=== PATIENT | female | born 1985 | race Caucasian/White ===

== ENCOUNTER 2018-03-26 14:57 | Outpatient (CLI) | payer OTHER | END 2018-03-26 14:58 | disposition home or self-care (01) | LOC: DTY/OP 14:57 | PROVIDERS: ATTEND Surgery | DX: E66.01 Morbid (severe) obesity due to excess calories (principal) | CPT/HCPCS: 97802 ==

== ENCOUNTER 2018-05-12 08:00 | Inpatient (IN) | payer BC ==
[2018-05-20] MEDS ORDERED: Fentanyl 100 MCG/2 ML VIAL ONE ×2 (06:31→09:17)
[2018-05-20] MEDS ORDERED: CEFAZOLIN/Water 2 GM/20 ML SYRINGE ONE (06:36)
[2018-05-20] MEDS ORDERED: Heparin 5,000 UNITS/ML VIAL ONE (06:36)
[2018-05-20] MEDS ORDERED: Bupivacaine/Epinephrine 0.25% 30 ML VIAL ONE (07:07)
[2018-05-20] MEDS ORDERED: Midazolam HCl 2 mg/2 ml Vial ONE (07:16)
[2018-05-20] MEDS ORDERED: Promethazine HCl 25 MG/ML VIAL IM PRN ×3 (08:53→12:04)
[2018-05-20] MEDS ORDERED: Promethazine HCl 25 MG/ML VIAL SLOW IVP PRN (08:53)
[2018-05-20] MEDS ORDERED: Ondansetron HCl/PF 4 MG/2 ML Vial IVP PRN ×3 (08:53→12:04)
[2018-05-20] MEDS ORDERED: diphenhydrAMINE 25 MG CAP PO PRN (08:54)
[2018-05-20] MEDS ORDERED: fentaNYL Citrate/PF 2,000 MCG in Sodium Chloride 0.9% 60 ML IV PRN (08:54)
[2018-05-20] MEDS ORDERED: Naloxone HCl 0.4 mg/ml Vial IV PRN (08:54)
[2018-05-20] MEDS ORDERED: Zolpidem Tartrate 5 MG TAB PO PRN (08:54)
[2018-05-20] MEDS ORDERED: diphenhydrAMINE 50 MG/ML VIAL IM PRN (08:54)
[2018-05-20] MEDS ORDERED: diphenhydrAMINE 50 MG/ML VIAL IVP PRN ×2 (08:54→12:04)
[2018-05-20] MEDS ORDERED: Communication Order-Pharmacy FS SCH (09:00)
[2018-05-20] MEDS ORDERED: Ondansetron HCl/PF 4 MG/2 ML Vial ONE ×2 (09:11→15:44)
[2018-05-20] MEDS ORDERED: Metoclopramide HCl 10 MG/2 ML VIAL ONE (09:29)
--- NOTE | 2018-05-20 11:11 | OP ---
DATE OF PROCEDURE: 05/20/2018 PREOPERATIVE DIAGNOSIS: Morbid obesity with a BMI of 43. POSTOPERATIVE DIAGNOSIS: Morbid obesity with a BMI of 43. PROCEDURE: 1. Laparoscopic sleeve gastrectomy, [place] staple line reinforcements and 38 Uzbek bougie. 2. Laparoscopic repair of paraesophageal hernia without fundoplication. SURGEON: Jaylon Oakes M.D. ANESTHESIA: General. ESTIMATED BLOOD LOSS: 50 mL COMPLICATIONS: None. FINDINGS: Hiatal hernia paraesophageal, normal postoperative EGD. SPECIMEN: Stomach. INDICATION: The patient is a 32-year-old female, who presents for weight loss surgery. She has atte nded our seminar, preoperative education and had a psychologic evaluation. Risks, benefits, alternat mu as well as alternative procedures for weight loss were discussed. She gave consent. TECHNIQUE: The patient was taken to the operating room and placed supine on the table. After genera l anesthetic was obtained, the arms and legs were double strapped to bariatric table. The abdomen wa s prepped and draped in a sterile fashion. OG tube had been used to decompress the stomach. Left fitzgerald bcostal 5-mm Optiview trocar was placed in the usual fashion. High-flow pneumoperitoneum was obtaine d. Two right and left abdominal 12-mm ports as well as a right subcostal 5 mm port were placed under direct visualization. A 5-mm incision made at the xiphoid and Rex was used to raise the liver off the GE junction. There is paraesophageal hernia found. Short gastric taken down from a distanc e 6 cm proximal to the pylorus all the way to the left cristina of the diaphragm. Left cristina angle of His and fundus systems completely dissected. The gastrohepatic ligament is opened. The right cristina is f ound. The mediastinum is entered just below and to the right of the esophagus. Circumferential diss ection of the esophagus is performed, allowing the GE junction to come back down into the abdominal c avity. 0 Ethibond suture and the tie knot system is used to put two sutures posteriorly to reapproxi mate the crura. This is after a 38 bougie was brought in and its tip left in the antrum of the stoma ch. Multiple loads and [place] stapler was used to form the sleeve. The first is fired up at a dist ance of 6 cm proximal to the pylorus angled up to the incisura. Care was taken to avoid being too cl ose to incisura. Multiple loads then fired up along the bougie, and stomach was completely transecte d at the angle of His. The stomach was removed from left abdominal incision. This fascial defect wa s closed using GraNee needle 0 Vicryl tie. All port site were infiltrated using local anesthetic. E GD scope was passed into the esophagus, stomach to the level of duodenum without obstruction or stric ture. It is not too tight at the GE junction or at the esophageal hiatus. There is no air leakage t hrough the staple line. EGD scope was used to decompress the stomach, it was pulled and removed. Na thansen retractor was removed under direct visualization without bleeding. All port sites were remov ed under direct visualization. Pneumoperitoneum was let down. The Vicryl was used to close the fasc ia defect from left abdominal incisions. All incisions were irrigated and closed using 4-0 Monocryl and Dermabond. The patient went to recovery in stable condition. All instrument counts, needle cou nts and lap counts were correct.
[2018-05-20 11:30] VITALS: BMI 41.5
[2018-05-20] MEDS ORDERED: Dextrose 5% in Water 1,000 ML IV PRN (12:04)
[2018-05-20] MEDS ORDERED: Dextrose 50% Abboject 50 ML SYRINGE SLOW IVP PRN (12:04)
[2018-05-20] MEDS ORDERED: Hydrocodone-Acetamin 15 ML UDCUP PO PRN (12:04)
[2018-05-20] MEDS ORDERED: hydrALAZINE 20 MG/ML VIAL SLOW IVP PRN (12:04)
[2018-05-20] MEDS: Acetaminophen 1,000 MG in Premix Bag 1 BAG IVPB SCH ×2 (14:13→17:20)
[2018-05-20] MEDS: D5 1/2 NS w/20 mEq KCL 1,000 ML IV SCH ×2 (14:14→14:47)
[2018-05-20] MEDS: CEFAZOLIN/Water 2 GM/20 ML SYRINGE SLOW IVP SCH ×2 (14:24→21:27)
[2018-05-20] MEDS ORDERED: Glycopyrrolate 0.2 MG/ML 5 ML SYRINGE ONE (15:44)
[2018-05-20] MEDS ORDERED: PROPOFOL 200 MG/20 ML VIAL ONE (15:44)
[2018-05-20] MEDS ORDERED: Vecuronium 10 MG VIAL ONE (15:44)
[2018-05-20] MEDS ORDERED: Dexamethasone 20 MG/5 ML VIAL ONE (15:44)
[2018-05-20] MEDS ORDERED: Ketorolac Tromethamine 30 MG/ML VIAL ONE (15:44)
[2018-05-20] MEDS ORDERED: Lidocaine 1% PF 5 ML VIAL ONE (15:44)
[2018-05-20] MEDS ORDERED: Enoxaparin Sodium 40 MG/0.4 ML SYRINGE SC SCH (21:00)
[2018-05-20] MEDS ORDERED: Pantoprazole 40 MG VIAL IVP SCH (21:00)
[2018-05-21] MEDS: D5 1/2 NS w/20 mEq KCL 1,000 ML IV SCH (00:12)
[2018-05-21] MEDS: Acetaminophen 1,000 MG in Premix Bag 1 BAG IVPB SCH ×2 (00:32→07:26)
[2018-05-21 05:49] LABS: #Lymphocytes 2.5 thou/uL (1.20-3.40); #Monocytes 0.9 thou/uL (0.11-0.59); #Neutrophils 9.4 thou/uL (1.40-6.50); %Basophils 0.2 % (0.0-1.0); %Eosinophils 0.3 % (0.0-10.0); %Lymphocytes 19.3 % (21.0-51.0); %Neutrophils 73.2 % (42.0-75.0); Hemoglobin 12.1 g/dL (12.0-16.0); Mean Corpuscular HGB CONC 33.1 g/dL (32.0-36.0); Mean Corpuscular Hemoglobin 26.4 pg (27.0-31.0); Mean Corpuscular Volume 79.8 fL (78.0-98.0); Mean Platelet Volume 8.4 fL (7.4-10.4); Platelet Count 359 thou/uL (130-400); RBC Distribution Width 12.8 % (11.5-14.5); Red Blood Cell (RBC) Count 4.59 mill/uL (4.20-5.40); White Blood Cell (WBC) Count 12.8 thou/uL (4.8-10.8)
[2018-05-21 05:54] LABS: Anion Gap 12 mmol/L (10-20); BUN (Urea Nitrogen) 5 mg/dL (7.0-18.7); Calc. Creatinine Clearance 239 mL/min (70-130); Calcium 8.8 mg/dL (7.8-10.44); Carbon Dioxide 23 mmol/L (22-29); Chloride 106 mmol/L (98-107); Estimated GFR-MDRD Greater than 90; Glucose 127 mg/dL (70-105); Potassium 4.1 mmol/L (3.5-5.1); Sodium 137 mmol/L (136-145)
[2018-05-21] MEDS ORDERED: Hydrocodone-Acetamin 15 ML UDCUP PO PRN (10:04)
[2018-05-21 11:50] VITALS: BP 147/93; TEMP 98.2
--- NOTE | 2018-05-21 14:27 | DIS ---
ADMIT DIAGNOSIS: Morbid obesity. DISCHARGE DIAGNOSIS: Morbid obesity. PROCEDURES: Laparoscopic sleeve gastrectomy and hiatal hernia repair by Dr. Oakes without complica tion. CONDITION AT DISCHARGE: Improved. STAFF: Dr. Jaylon Oakes. HOSPITAL COURSE: On postop day #1, the patient tolerating liquid diet. She is doing well. She is d ischarged home. She will follow up with me in 2 weeks in the office. Prescriptions already sent to her pharmacy.
== END 2018-05-21 12:06 | disposition home or self-care (01) | DRG 621 ==
LOC: SURG A 05-20 05:56 → SURG B 05-20 11:41
PROVIDERS: ADMIT Surgery; ATTEND Surgery
PROC: 0DB64Z3 Excision of Stomach, Percutaneous Endoscopic Approach, Vertical (ICD-10-PCS; principal; 2018-05-20)
PROC: 0BQT4ZZ Repair Diaphragm, Percutaneous Endoscopic Approach (ICD-10-PCS; 2018-05-20)
DX: E66.01 Morbid (severe) obesity due to excess calories (principal); Z68.41 Body mass index [BMI] 40.0-44.9, adult; K44.9 Diaphragmatic hernia without obstruction or gangrene
CPT/HCPCS: 36415; 80048; 85025; 88307; 88312; 94760; C9113; J0131; J1100; J1644; J1650; J1885; J2001; J2250; J2405; J2704; J2765; J3010; J7050

== ENCOUNTER 2018-05-14 13:49 | Outpatient (CLI) | payer BC ==
--- NOTE | 2018-05-14 14:18 | RAD ---
TWO VIEWS CHEST: Comparison: None. History: Pre-operative radiograph. FINDINGS: Two views of the chest show normal sized cardiomediastinal silhouette. There is no evidence of consol idation, mass, or pleural effusion. The bones are unremarkable. IMPRESSION: No evidence of acute cardiopulmonary disease. POS: [facility]
[2018-05-14 14:22] LABS: #Basophils 0.1 thou/uL (0.0-0.2); #Eosinphils 0.2 thou/uL (0.0-0.7); #Lymphocytes 3.1 thou/uL (1.20-3.40); #Monocytes 0.7 thou/uL (0.11-0.59); %Basophils 0.7 % (0.0-1.0); %Eosinophils 1.8 % (0.0-10.0); %Lymphocytes 31.1 % (21.0-51.0); %Neutrophils 59.5 % (42.0-75.0); Hemoglobin 12.9 g/dL (12.0-16.0); Mean Corpuscular HGB CONC 34.4 g/dL (32.0-36.0); Mean Corpuscular Volume 78.6 fL (78.0-98.0); Mean Platelet Volume 8.2 fL (7.4-10.4); Platelet Count 364 thou/uL (130-400); RBC Distribution Width 12.8 % (11.5-14.5); Red Blood Cell (RBC) Count 4.76 mill/uL (4.20-5.40)
[2018-05-14 14:29] LABS: BHCG - Serum Negative (NEGATIVE); Hemoglobin A1c 5.5 % (4.0-6.0); Pregs Control Background? CLEAR/WHITE (CLR/WHITE); Pregs Control Bar Appear? YES (CONTROL BAR)
[2018-05-14 14:42] LABS: ALT (SGPT) 21 U/L (8-55); AST (SGOT) 17 U/L (5-34); Albumin 4.3 g/dL (3.5-5.0); Alkaline Phosphatase 71 U/L (40-150); Anion Gap 14 mmol/L (10-20); BUN (Urea Nitrogen) 14 mg/dL (7.0-18.7); Bilirubin, Direct 0.1 mg/dL (0.1-0.3); Bilirubin, Total 0.4 mg/dL (0.2-1.2); Calc. Creatinine Clearance 0 mL/min (70-130); Calcium 9.6 mg/dL (7.8-10.44); Carbon Dioxide 23 mmol/L (22-29); Chloride 103 mmol/L (98-107); Estimated GFR-MDRD Greater than 90; Globulin 3.9 g/dL (2.4-3.5); Glucose 116 mg/dL (70-105); Potassium 4.3 mmol/L (3.5-5.1); Protein, Total 8.2 g/dL (6.0-8.3); Sodium 136 mmol/L (136-145)
== END 2018-05-14 13:50 | disposition home or self-care (01) ==
LOC: LABBT 13:49
PROVIDERS: ATTEND Surgery
DX: Z01.818 Encounter for other preprocedural examination (principal); E66.01 Morbid (severe) obesity due to excess calories
CPT/HCPCS: 71046; 80053; 80076; 83036; 84703; 85025; 93005; 93010

== ENCOUNTER 2020-06-14 08:09 | Outpatient (CLI) | payer BC ==
--- NOTE | 2020-06-14 09:53 | MMO ---
Bilateral MAMMO Bilat Diag [facility]. CLINICAL HISTORY: Patient is 35 years old and is seen for diagnostic exam,lump or thickening and bloody discharge in the right breast. The patient has no family history of breast cancer. The patient has no personal history of cancer. VIEWS: The views performed were: bilateral craniocaudal with tomosynthesis; bilateral mediolateral oblique with tomosynthesis; and bilateral mediolateral with tomosynthesis. FILMS COMPARED: The present examination has been compared to a prior imaging study performed at [facility] on 06/14/2020. This study has been interpreted with the assistance of computer-aided detection. MAMMOGRAM FINDINGS: There are scattered fibroglandular densities. No mammographic or sonograhic abnormality is seen at the site of palpable concern and subaerolar region in the right breast. There are no suspicious masses, suspicious calcifications, or new areas of architectural distortion. IMPRESSION: THERE IS NO MAMMOGRAPHIC EVIDENCE OF MALIGNANCY. AGE APPROPRIATE SCREENING BASED ON RISK FACTORS IS RECOMMENDED. THE RESULTS OF THIS EXAM WERE SENT TO THE PATIENT. ACR BI-RADS Category 2 - Benign finding Breast MRI should be performed to evaluate bloody nipple discharge. MAMMOGRAPHY NOTE: 1. A negative mammogram report should not delay a biopsy if a dominant of clinically suspicious mass is present. 2. Approximately 10% to 15% of breast cancers are not detected by mammography. 3. Adenosis and dense breasts may obscure an underlying neoplasm. Reported by: EUN GONSALES MD Electonically Signed: [id number]
--- NOTE | 2020-06-14 09:55 | ULT ---
RIGHT BREAST ULTRASOUND: Date: 06/14/2020 HISTORY: 35-year-old female with palpable abnormalities in the right breast and blood right nipple discharge. FINDINGS: Correlation made with mammogram from same date. Sonographic evaluation of the region of palpable concern at the 3, 5, and 6 o'clock positions of the right breast, as well as the subareolar region, demonstrate no abnormality. IMPRESSION: BI-RADS Category 2 - Benign findings. Age-appropriate mammographic screening based on risk factors is recommended. Breast MRI should be performed to evaluate the bloody nipple discharge. CODE T. POS: OFF
== END 2020-06-14 08:10 | disposition home or self-care (01) ==
LOC: BICMAMMO 08:09
PROVIDERS: ATTEND Family Medicine
DX: N64.52 Nipple discharge (principal); N60.01 Solitary cyst of right breast
CPT/HCPCS: 77066; G0279

== ENCOUNTER 2020-07-24 07:57 | Outpatient (CLI) | payer BC ==
--- NOTE | 2020-07-24 08:41 | CT ---
CT Stone Protocol: 07/24/2020 12:00 AM HISTORY: Left kidney pain for 6 months COMPARISON: None. TECHNIQUE: Multiple contiguous axial images were obtained and a CT of the abdomen and pelvis without IV contrast . Coronal and sagittal reformats were performed. FINDINGS: This examination is limited for the evaluation of solid organs and vascular structures due to the lac k of intravenous contrast. Lower Chest: within normal limits. Abdomen: Liver: within normal limits. Bile Ducts: Normal caliber. Gallbladder: Removed Pancreas: within normal limits. Spleen: within normal limits. Adrenals: within normal limits. Kidneys: There is a 1.3 cm calcification in the left renal pelvis with mild left hydronephrosis. No r ight renal calcifications. Pelvis: Reproductive Organs: No pelvic masses. Ureters: within normal limits. Bladder: within normal limits. Bowel: Normal caliber. Postsurgical changes are seen in the stomach. Normal appendix. Mesenteric Lymph Nodes: No enlarged mesenteric lymph nodes. Peritoneum: No ascites or free air, no fluid collection. Vessels: Normal caliber aorta Retroperitoneum: within normal limits. Abdominal Wall: within normal limits. Bones: Unremarkable. IMPRESSION: Left-sided kidney stone with mild left hydronephrosis
== END 2020-07-24 07:58 | disposition home or self-care (01) ==
LOC: SCSCT 07:57
PROVIDERS: ATTEND Urology
DX: N20.0 Calculus of kidney (principal); N13.30 Unspecified hydronephrosis
CPT/HCPCS: 74176

== ENCOUNTER 2020-08-13 06:17 | Outpatient (CLI) | payer BC, OTHER ==
[2020-08-13 18:16] LABS: #Basophils 0.1 thou/uL (0.0-0.2); #Eosinphils 0.1 thou/uL (0.0-0.7); #Lymphocytes 2.9 thou/uL (1.20-3.40); #Monocytes 0.8 thou/uL (0.11-0.59); #Neutrophils 6.5 thou/uL (1.40-6.50); %Eosinophils 1.1 % (0.0-10.0); %Lymphocytes 27.9 % (21.0-51.0); %Monocytes 7.3 % (0.0-10.0); %Neutrophils 62.7 % (42.0-75.0); Hemoglobin 12.4 g/dL (12.0-16.0); Mean Corpuscular HGB CONC 33.7 g/dL (32.0-36.0); Mean Corpuscular Hemoglobin 27.1 pg (27.0-31.0); Mean Corpuscular Volume 80.6 fL (78.0-98.0); Mean Platelet Volume 8.9 fL (7.4-10.4); Platelet Count 343 thou/uL (130-400); RBC Distribution Width 11.9 % (11.5-14.5); Red Blood Cell (RBC) Count 4.58 mill/uL (4.20-5.40); White Blood Cell (WBC) Count 10.4 thou/uL (4.8-10.8)
[2020-08-13 18:33] LABS: PTT 33.7 sec (22.9-36.1)
[2020-08-13 18:39] LABS: BHCG - Serum Negative (NEGATIVE); Bacteria/HPF None Seen HPF (None Seen); Bilirubin Negative (Negative); Blood, Urine 1+ (Negative); Clarity Turbid (Clear); Glucose, Urine (Dipstick) Normal (Negative); Ketone, Urine Negative (Negative); Leukocyte Negative Leu/uL (Negative); Nitrite Negative (Negative); Pregs Control Background? CLEAR/WHITE (CLR/WHITE); Pregs Control Bar Appear? YES (CONTROL BAR); Protein, Urine (Dipstick) 10 mg/dL (Neg-Trace); Specific Gravity, Urine 1.016 (1.002-1.036); Squamous Epithelial 0-3 HPF (0-3); Urobilinogen Normal mg/dL (Less than 2); WBC/HPF 0-3 HPF (0-3)
[2020-08-13 18:41] LABS: Mucous/LPF 1+ LPF (<2+)
[2020-08-13 18:57] LABS: Anion Gap 14 mmol/L (10-20); BUN (Urea Nitrogen) 11 mg/dL (7.0-18.7); Calc. Creatinine Clearance 0 mL/min (70-130); Calcium 9.5 mg/dL (7.8-10.44); Carbon Dioxide 25 mmol/L (22-29); Chloride 103 mmol/L (98-107); Estimated GFR-MDRD Greater than 90; Glucose 101 mg/dL (70-105); Potassium 4.4 mmol/L (3.5-5.1); Sodium 138 mmol/L (136-145)
[2020-08-14 13:22] LABS: SARS-CoV-2 MS2 Positive; SARS-CoV-2 N Gene Negative; SARS-CoV-2 S Gene Negative; SARS-CoV-2 by NAA Not Detected (NotDetected); SARS-CoV-2 orf1ab Negative
== END 2020-08-13 06:18 | disposition home or self-care (01) ==
LOC: LABBT 06:17
PROVIDERS: ATTEND Specialist
DX: Z01.812 Encounter for preprocedural laboratory examination (principal); Z20.828 Contact with and (suspected) exposure to other viral communicable diseases; D24.9 Benign neoplasm of unspecified breast
CPT/HCPCS: 80048; 81001; 84703; 85025; 85610; 85730; 87086; 87635; U0003

== ENCOUNTER 2020-08-16 07:32 | Day surgery (SDC) | payer BC ==
[2020-08-14 11:04] VITALS: BMI 34.6
[2020-08-16] MEDS ORDERED: Acetaminophen 500 MG TAB ONE (08:01)
[2020-08-16] MEDS ORDERED: Levofloxacin 500 mg/D5W 100 ml Premix Bag ONE (08:01)
[2020-08-16] MEDS ORDERED: Ketorolac Tromethamine 30 MG/ML VIAL ONE (08:01)
[2020-08-16] MEDS ORDERED: Midazolam HCl 2 mg/2 ml Vial ONE ×2 (09:30→13:06)
[2020-08-16] MEDS ORDERED: Ondansetron PF 4 MG/2 ML Vial ONE (09:48)
[2020-08-16] MEDS ORDERED: Glycopyrrolate 0.2 MG/ML 5 ML SYRINGE ONE (09:48)
[2020-08-16] MEDS ORDERED: PROPOFOL 200 MG/20 ML VIAL ONE ×2 (09:48)
[2020-08-16] MEDS ORDERED: EPHEDRINE 25 MG/5 ML SYRINGE ONE (09:48)
[2020-08-16] MEDS ORDERED: Lidocaine 1% PF 5 ML VIAL ONE (09:48)
[2020-08-16] MEDS ORDERED: Rocuronium Bromide 10 MG/ML (10ML VIAL) ONE (09:48)
[2020-08-16] MEDS ORDERED: Dexamethasone 20 MG/5 ML VIAL ONE (09:48)
[2020-08-16] MEDS ORDERED: PHENYLEPHRINE-NS 100 MCG/ML 10 ML SYRINGE ONE ×2 (09:48)
[2020-08-16] MEDS ORDERED: Fentanyl 100 MCG/2 ML VIAL ONE ×2 (10:05→12:45)
[2020-08-16] MEDS ORDERED: Lidocaine 1% w/Epinephrine 1:100K 20 ML VIAL ONE (10:07)
[2020-08-16] MEDS ORDERED: Bupivacaine 0.25% HCL 30 ML VIAL ONE (10:07)
[2020-08-16] MEDS ORDERED: B & O ONE (12:40)
[2020-08-16] MEDS ORDERED: Iothalamate Meglumine 60% 50 ML VIAL FS ONE (12:40)
[2020-08-16] MEDS ORDERED: Isosulfan Blue 50 MG/5 ML VIAL ONE (13:27)
[2020-08-16] MEDS ORDERED: HYDROcodone/Acetaminophen 5/325 mg Tablet ONE (15:55)
--- NOTE | 2020-08-16 16:23 | RAD ---
EXAM: XR IVP Retrograde PROVIDED CLINICAL HISTORY: Nephrolithiasis. Left left flank pain COMPARISON: CT abdomen on 07/24/2020 FINDINGS/IMPRESSION: 5 intraoperative fluoroscopic images from left retrograde study are performed. Initial image demonstr ates guidewire in place overlying the expected location left ureter and renal collecting system. The calculus overlying the left renal pelvis noted on CT exam is visualized. Surgical clips overlie t he left upper quadrant as well. Subsequent imaging demonstrates a sheath in place with final images demonstrating absence of the previously noted left renal calculus related to interval treatment. Iker elation with intraoperative findings is recommended.
[2020-08-16] MEDS ORDERED: Promethazine HCl 25 MG/ML VIAL ONE (16:41)
--- NOTE | 2020-08-16 20:44 | OP ---
DATE OF PROCEDURE: 08/16/2020 SERVICES: Urology. PREOPERATIVE DIAGNOSIS: Left renal stone. POSTOPERATIVE DIAGNOSIS: Left renal stone. PROCEDURES PERFORMED: Left ureteroscopy, laser lithotripsy, basket extraction of stone, placement of 6 x 26 double-J stent with no string attached. INDICATIONS FOR PROCEDURE: Ms. Reed is a 35-year-old white female with a large left renal stone measuring about 13 mm. She was symptomatic from this with some left flank pain. She also has an intraductal papilloma, which is going to be removed by Dr. Salinas. She requested both surgeries to be done at the same time. Risks and benefits of ureteroscopy were discussed and the patient has agreed to proceed forward. DESCRIPTION OF PROCEDURE: The patient rolled into the operating room, intubated, on ventilation, previously from her surgery with Dr. Salinas. She was placed in the dorsal lithotomy position and prepped and draped in usual sterile fashion. After appropriate time-out, a lubricated 22-Armenian rigid cystoscope was introduced per urethra into the bladder. Attention was turned to left ureteral orifice, which was cannulated with a 0.035 Sensor wire up to the level of renal pelvis. The cystoscope was then removed, and a dual-lumen catheter was advanced over the Sensor wire up to the level of the mid ureter. An Amplatz Super Stiff wire was then placed through the second lumen of the dual-lumen up to the level of renal pelvis. The dual-lumen was then removed, and a Sensor wire affixed to the drapes as a safety wire. A Bard 12/14-Armenian short ureteral access sheath was advanced over the Super Stiff wire up to the level of proximal ureter. The inner cannula was removed, leaving the outer sheath and Sensor wire in place. A flexible digital ureteroscope was then passed through the ureteral access sheath into the renal pelvis, where the stone was immediately encountered. It appeared to be calcium oxalate dihydrate by appearance. Using a 275-micron ball-tip laser fiber, the stone was fragmented into small pieces and then the larger fragments were removed using 1.9-Armenian Olaf basket. Upon completion, all fragments remaining were submillimeter or 1 mm in size. I could not find any larger fragments as they had all been removed. I felt that these stones should pass. There were stones located in the upper, mid, and lower pole, all again in the mm to submillimeter range. Pull-back ureteroscopy was employed. No additional stones were found within the ureter. There were no mucosal splits or dilation that occurred. The sheath and ureteroscope were then removed completely. A 6 x 26 double-J stent was advanced over the Sensor wire and placed fluoroscopically into the kidney. The wire was removed leaving a partial curl in the kidney and a good curl in the bladder. The cystoscope was introduced back into the bladder and confirmed that the distal curl was indeed in the bladder. The bladder was emptied. The cystoscope was removed. B and O suppository was placed in the patient's rectum. She was then taken out of positioning, awakened, taken to PACU for recovery in stable condition. COMPLICATIONS: None. ESTIMATED BLOOD LOSS: Minimal. RETAINED TUBES AND DRAINS: 6 x 26 double-J stent on the left. SPECIMENS: Stone for stone analysis. DISPOSITION: The patient will be discharged home. She will follow up with Dr. Salinas for incision check for her breast lesion as well as for me in about 1 week for cystoscopy and stent removal. Job ID: [id number]
--- NOTE | 2020-08-20 11:32 | OP ---
DATE OF PROCEDURE: 08/16/2020 PREOPERATIVE DIAGNOSIS: Right breast nipple discharge. POSTOPERATIVE DIAGNOSIS: Right breast nipple discharge. OPERATION PERFORMED: Right breast ductal excision. ANESTHESIA: General endotracheal. INDICATIONS: The patient is a 35-year-old female. She gives a recent history of spontaneous right nipple discharge. She is being taken to the operating room today for management of nephrolithiasis by Dr. Hwang. The patient has requested to proceed with a right breast ductal excision under the same anesthetic. DESCRIPTION OF OPERATION: An informed consent was obtained. The patient was taken to the operating room where general anesthesia was obtained with the patient in supine position. Right breast was prepped with ChloraPrep and draped in sterile fashion. I addressed the right breast. With compression, I was able to express a thin milky-appearing fluid from a single duct. This was the same duct that was identified in the office. This was at about the 10 o'clock Radian on the nipple. I was able to cannulate this with a lacrimal duct probe. I subsequently cannulated with a 22-gauge Angiocath and I instilled about 1 mL of methylene blue dye. I then replaced the lacrimal duct probe and proceed with the excision. Additional local anesthetic was infiltrated using a mixture of 1% lidocaine with epinephrine and 0.25% Marcaine. A curvilinear circumareolar incision was created around the lateral aspect of the areola. Dissection was carried through skin and subcutaneous tissue. I dissected medially up underneath the lateral aspect of the areola to identify the duct, in which the lacrimal duct probe entered. This was dissected circumferentially and divided close to the nipple. Then, grasping the same ductal system, I dissected a pyramidal-shaped wedge of tissue extending down into the lateral aspect of the subareolar breast. I was guided during this dissection by the blue dye. The specimen was removed intact and tagged for orientation and submitted to Pathology. Meticulous hemostasis was obtained with electrocautery. The wound was closed in layers with 3-0 and 4-0 Monocryl and Dermabond was placed externally. There were no complications. The patient tolerated the procedure well and was taken to recovery room in stable condition. Job ID: [id number]
== END 2020-08-16 17:20 | disposition home or self-care (01) ==
LOC: SDC 07:32
PROVIDERS: ATTEND Specialist
PROC: 0T778DZ Dilation of Left Ureter with Intraluminal Device, Via Natural or Artificial Opening Endoscopic (ICD-10-PCS; principal; 2020-08-16)
PROC: 0HBT0ZZ Excision of Right Breast, Open Approach (ICD-10-PCS; principal; 2020-08-16)
PROC: 0TC48ZZ Extirpation of Matter from Left Kidney Pelvis, Via Natural or Artificial Opening Endoscopic (ICD-10-PCS; principal; 2020-08-16)
DX: D24.1 Benign neoplasm of right breast (principal); N20.0 Calculus of kidney; E66.01 Morbid (severe) obesity due to excess calories; Z68.34 Body mass index [BMI] 34.0-34.9, adult; Z79.899 Other long term (current) drug therapy
CPT/HCPCS: 74420; 82365; 88300; 88307; J0690; J1100; J1885; J1956; J2250; J2405; J2550; J2704; J3010; Q9968; S0020

== ENCOUNTER 2021-03-10 19:13 | Emergency (ER) | payer BC ==
[2021-03-10] MEDS ORDERED: Lorazepam 2 MG/ML VIAL ONE (19:32)
[2021-03-10 19:59] LABS: #Basophils 0.1 thou/uL (0.0-0.2); #Eosinphils 0.2 thou/uL (0.0-0.7); #Monocytes 1.1 thou/uL (0.11-0.59); #Neutrophils 7.6 thou/uL (1.40-6.50); %Basophils 0.7 % (0.0-1.0); %Eosinophils 1.3 % (0.0-10.0); %Lymphocytes 25.5 % (21.0-51.0); %Neutrophils 63.5 % (42.0-75.0); Hemoglobin 12.3 g/dL (12.0-16.0); Mean Corpuscular HGB CONC 33.3 g/dL (32.0-36.0); Mean Corpuscular Hemoglobin 25.9 pg (27.0-31.0); Mean Corpuscular Volume 77.8 fL (78.0-98.0); Platelet Count 349 thou/uL (130-400); RBC Distribution Width 12.7 % (11.5-14.5); Red Blood Cell (RBC) Count 4.76 mill/uL (4.20-5.40); White Blood Cell (WBC) Count 11.9 thou/uL (4.8-10.8)
[2021-03-10 20:22] LABS: ALT (SGPT) 11 U/L (8-55); AST (SGOT) 15 U/L (5-34); Albumin 4.1 g/dL (3.5-5.0); Alkaline Phosphatase 73 U/L (40-110); Anion Gap 13 mmol/L (10-20); BUN (Urea Nitrogen) 14 mg/dL (7.0-18.7); Bilirubin, Total 0.3 mg/dL (0.2-1.2); CK (CPK) 42 U/L (29-168); Calc. Creatinine Clearance 0 mL/min (70-130); Calcium 9.3 mg/dL (7.8-10.44); Carbon Dioxide 22 mmol/L (22-29); Chloride 103 mmol/L (98-107); Globulin 4.4 g/dL (2.4-3.5); Glucose 110 mg/dL (70-105); Potassium 3.6 mmol/L (3.5-5.1); Protein, Total 8.5 g/dL (6.0-8.3); Sodium 134 mmol/L (136-145)
== END 2021-03-10 20:29 | disposition home or self-care (01) ==
LOC: ERS 19:13
DX: F41.1 Generalized anxiety disorder (principal); R25.2 Cramp and spasm; R07.2 Precordial pain; Z87.442 Personal history of urinary calculi; Z79.899 Other long term (current) drug therapy; Z87.19 Personal history of other diseases of the digestive system; Z86.19 Personal history of other infectious and parasitic diseases
CPT/HCPCS: 36415; 80053; 82550; 84484; 85025; 85379; 93005; 96372; J2060